=== PATIENT | female | born 1970 | race Caucasian/White ===

== ENCOUNTER → 2017-03-14 | Outpatient (CLI) | payer BC ==
--- NOTE | 2017-03-14 08:59 | US ---
EXAMINATION TYPE: US abdomen complete DATE OF EXAM: 03/14/2017 8:45 AM COMPARISON: NONE CLINICAL HISTORY: R10.9 Abd pain. EXAM MEASUREMENTS: Liver Length: 12.9 cm Gallbladder Wall: 0.1 cm CBD: 0.2 cm Spleen: 11.1 cm Right Kidney: 10.6 x 3.6 x 6.2 cm cm Left Kidney: 10.2 x 3.9 x 4.4 cm Pancreas: wnl Liver: wnl Gallbladder: wnl Evidence for sonographic Davison's sign: No CBD: wnl Spleen: wnl Right Kidney: wnl Left Kidney: small cortical cyst 0.8 x0.5 x 0.8cm Upper IVC: wnl Abd Aorta: wnl The liver is homogenous. The intrahepatic portion of the IVC and proximal abdominal aorta are within normal limits. There is no evidence of cholelithiasis. Common bile duct is unremarkable. The visu alized portions of the pancreas are homogenous. The spleen is unremarkable. Kidneys are symmetric a nd free of hydronephrosis. No renal lesions are seen. IMPRESSION: 1. Small incidental left renal cortical cyst. Otherwise unremarkable study.
--- NOTE | 2017-03-14 09:00 | US ---
EXAMINATION TYPE: US pelvic complete DATE OF EXAM: 03/14/2017 8:30 AM COMPARISON: NONE CLINICAL HISTORY: R10.9 Abd pain. TECHNIQUE: Transabdominal (TA) Date of LMP: partial hysterectomy 2011 EXAM MEASUREMENTS: Uterus: Surgically absent cm Endometrial Stripe: Surgically absent cm Right Ovary: 3.2 x 1.8 x 1.5 cm Left Ovary: 2.1 x 1.1 x 2.2 cm 1. Uterus: Surgically absent 2. Endometrium: Surgically absent 3. Right Ovary: wnl 4. Left Ovary: wnl 5. Bilateral Adnexa: wnl 6. Posterior cul-de-sac: wnl IMPRESSION: Postsurgical pelvis. No free fluid or mass identified.
== END | disposition home or self-care (01) ==
LOC: RADUSWWP 08:16
PROVIDERS: ATTEND Family Medicine
DX: R10.9 Unspecified abdominal pain (principal); Z98.890 Other specified postprocedural states
CPT/HCPCS: 76700; 76856

== ENCOUNTER → 2019-10-29 | Outpatient (CLI) | payer BC ==
--- NOTE | 2019-10-30 14:51 | MM ---
Reason for exam: screening (asymptomatic). Last mammogram was performed 2 years ago. History: Took hormonal contraceptives for 3 months. Physical Findings: A clinical breast exam by your physician is recommended on an annual basis and results should be correlated with mammographic findings. MG 3D Screening Mammo W/Cad Bilateral CC and MLO view(s) were taken. Prior study comparison: October 16, 2017, mammogram, performed at [facility]. May 08, 2016, mammogram, performed at [facility]. The breast tissue is heterogeneously dense. This may lower the sensitivity of mammography. There is no discrete abnormality. No significant changes when compared with prior studies. ASSESSMENT: Negative, BI-RAD 1 RECOMMENDATION: Routine screening mammogram of both breasts in 1 year.
== END | disposition home or self-care (01) ==
LOC: RADMAMWWP 07:42
PROVIDERS: ATTEND Family Medicine
DX: Z12.31 Encounter for screening mammogram for malignant neoplasm of breast (principal)
CPT/HCPCS: 77063; 77067

== ENCOUNTER → 2022-02-08 | Outpatient (CLI) | payer BC ==
--- NOTE | 2022-02-08 19:28 | US ---
EXAMINATION TYPE: US st tissue neck DATE OF EXAM: 02/08/2022 COMPARISON: NONE CLINICAL HISTORY: 51-year-old female M54.2 CERVICALGIA. Right neck pain and swelling Technique: Targeted sonographic examination along the right side of the neck at the area of concern. Contralateral images of the left side of the neck were obtained for comparison purposes. FINDINGS: [employer] Shop Attendant notes: Right neck at area of concern: appears wnl Left neck for comparison: appears wnl IMPRESSION: Real-time scanning by the excellence consultant along the right side of the neck corresponding to the site of p ain and swelling shows no discrete sonographic abnormality. Clinical follow-up recommended. If any wo rsening and if indicated, contrast-enhanced CT can be considered.
== END | disposition home or self-care (01) ==
LOC: RADUSWWP 14:53
PROVIDERS: ATTEND Family Medicine
DX: M54.2 Cervicalgia (principal)
CPT/HCPCS: 76536

== ENCOUNTER → 2023-05-02 | Outpatient (CLI) | payer BC ==
--- NOTE | 2023-05-03 20:34 | MM ---
Reason for Exam: Screening (asymptomatic). Last mammogram was performed 1 year(s) and 2 month(s) ago. Patient History: Menarche at age 13. First Full-Term at age 20. Hysterectomy at age 44. Postmenopausal. Patient has history of breast feeding. Hormonal Contraceptives for 3 months. Risk Values: Judy 5 year model risk: 0.7%. NCI Lifetime model risk: 6.4%. Prior Study Comparison: 10/16/2017 Screening Mammogram, [facility]. 10/29/2019 Bilateral Screening Mammogram, [facility]. 02/13/2022 Bilateral Screening Mammogram, [facility]. Tissue Density: The breast tissue is heterogeneously dense. This may lower the sensitivity of mammography. Findings: Analyzed By CAD. There is no suspicious group of microcalcifications or new suspicious mass in either breast. Overall Assessment: Negative, BI-RAD 1 Management: Screening Mammogram of both breasts in 1 year. . Patient should continue monthly self-breast exams. A clinical breast exam by your physician is recommended on an annual basis. This exam should not preclude additional follow-up of suspicious palpable abnormalities. Note on Judy scores and lifetime risk: 1. A Judy score greater than 3% is considered moderate risk. If this is the case, consider specialist referral to assess eligibility for a risk reducing agent. 2. If overall lifetime risk for the development of breast cancer is 20% or higher, the patient may qualify for future screening with alternating mammogram and breast MRI. Electronically signed and approved by: Phil Carrillo M.D. Radiologist
== END | disposition home or self-care (01) ==
LOC: RADMAMWWP 16:48
PROVIDERS: ATTEND Family Medicine
DX: Z12.31 Encounter for screening mammogram for malignant neoplasm of breast (principal); Z78.0 Asymptomatic menopausal state
CPT/HCPCS: 77063; 77067

== ENCOUNTER → 2024-08-17 | Outpatient (CLI) | payer BC ==
--- NOTE | 2024-08-19 09:16 | MM ---
Reason for Exam: Screening (asymptomatic). Last mammogram was performed 1 year(s) and 4 month(s) ago. Patient History: Menarche at age 13. First Full-Term at age 20. Hysterectomy at age 44. Postmenopausal. Patient has history of breast feeding. Hormonal Contraceptives for 3 months. Risk Values: Judy 5 year model risk: 0.8%. NCI Lifetime model risk: 6.2%. Prior Study Comparison: 10/29/2019 Bilateral Screening Mammogram, [facility]. 02/13/2022 Bilateral Screening Mammogram, [facility]. 05/02/2023 Bilateral MG 3D screening mammo w/cad, [facility]. Tissue Density: The breasts are heterogeneously dense, which may obscure small masses. Findings: Analyzed By CAD. There is no suspicious group of microcalcifications or new suspicious mass in either breast. Overall Assessment: Negative, BI-RAD 1 Management: Screening Mammogram of both breasts in 1 year. . Patient should continue monthly self-breast exams. A clinical breast exam by your physician is recommended on an annual basis. This exam should not preclude additional follow-up of suspicious palpable abnormalities. Note on Judy scores and lifetime risk: 1. A Judy score greater than 3% is considered moderate risk. If this is the case, consider specialist referral to assess eligibility for a risk reducing agent. 2. If overall lifetime risk for the development of breast cancer is 20% or higher, the patient may qualify for future screening with alternating mammogram and breast MRI. [facility], , 08/19/2024 9:13 AM. Electronically signed and approved by: Jim Hanson M.D. Radiologis
== END | disposition home or self-care (01) ==
LOC: RADMAMWWP 15:19
PROVIDERS: ATTEND Family Medicine
CPT/HCPCS: 77063; 77067